=== PATIENT | female | born 1930 | race Caucasian/White ===

== ENCOUNTER 2018-03-18 21:47 | Inpatient (IN) | payer MEDICARE ==
[~2018-03-18] VITALS: Ht 162.6 cm; Wt 54.5 kg
--- OUTSIDE RECORDS SUMMARY | 2018-03-18 21:50 | XMS REPORT | Summary of Care ---
Author Author [facility] [place] Organization [facility] [place] Address Unknown Phone Unavailable Encounter HQ Encntr_naif(FIN) [id number] Date(s): 07/16/15 - 07/16/15 [facility] [place] [address] [place], [place] [address] [place] [phone] Discharge Disposition: Home Attending Physician: Francoise Mccrary MD Vital Signs No data available for this section Problem List No data available for this section Allergies, Adverse Reactions, Alerts Substance Reaction Severity Status NKDA Active Medications No data available for this section Results No data available for this section Immunizations Vaccine Date Refusal Reason tetanus-diphtheria toxoids 05/28/09 Procedures No data available for this section Social History No data available for this section Assessment and Plan No data available for this section
--- OUTSIDE RECORDS SUMMARY | 2018-03-18 21:50 | XMS REPORT | Summary of Care ---
Author Author [facility] Address Unknown Phone Unavailable Encounter Encntr_alias(FIN) [id number] Date(s): 07/29/16 - 08/27/16 Critical access hospital Discharge Disposition: Home or Self Care Attending Physician: Kandy Vernon MD Vital Signs No data available for this section Problem List No data available for this section Allergies, Adverse Reactions, Alerts Substance Reaction Severity Status NKDA Active Medications No data available for this section Results No data available for this section Immunizations Given and Recorded Vaccine Date Status Refusal Reason tetanus-diphtheria toxoids 05/28/09 Given Procedures No data available for this section Social History No data available for this section Assessment and Plan No data available for this section
--- OUTSIDE RECORDS SUMMARY | 2018-03-18 21:50 | XMS REPORT | Continuity of Care Document ---
Author Author Reyes shah Organization Interface Address Unknown Phone Unavailable Problems Problem Status Onset Date Classification Date Reported Comments Source BILATERAL SHOULDERS Active 07/12/2016 [facility] [place] M25.511 - PAIN IN RIGHT SHOULDER M25.512 Active 07/15/2015 [facility] [place] Medications Medication Details Route Status Patient Instructions Ordering Provider Order Date Source Allergies, Adverse Reactions, Alerts Substance Category Reaction Severity Reaction type Status Date Reported Comments Source Immunizations Immunization Date Given Site Status Last Updated Comments Source tetanus-diphtheria toxoids 05/28/2009 Left Deltoid completed Disciullo [facility] [place], OP[facility] [place], [facility] [place] Results Order Name Results Value Reference Range Date Interpretation Comments Source Hand 3 views Bilateral DX Hand 3 views Bilateral DX EXAM: XR BILATERAL HAND 3 VIEWS DATE: 07/08/2016 1:49 PM CDT INDICATION: M25.50 Pain in unspecified joint - M25.50 Pain in unspecified joint COMPARISON: Left hand radiographs 05/28/2009 TECHNIQUE: PA, lateral and oblique radiographs of the bilateral hands. FINDINGS: Generalized diminished bone mineral density. Joint space narrowing and small osteophytes throughout the bilateral DIP and PIP joints, massively changed from 05/28/2009. No erosions identified. No soft tissue swelling identified. IMPRESSION: Moderate osteoarthrosis of the bilateral DIP and PIP joints. 07/08/2016 - - Read by: Cody Sotelo MD Dictated Date/time: 07/08/16 15:58 Electronically Signed by: Cody Sotelo MD 07/08/16 15:59 FINAL REPORT [facility] Foot 3 views bilateral DX Foot 3 views bilateral DX EXAM: XR BILATERAL FOOT 3 VIEWS DATE: 07/08/2016 1:49 PM CDT INDICATION: M25.50 Pain in unspecified joint - M25.50 Pain in unspecified joint COMPARISON: None TECHNIQUE: AP, lateral and oblique radiographs of the feet Laterality: Bilateral FINDINGS: Generalized diminished bone mineral density. Complete joint space loss with articular surface remodeling, sclerosis, and osteophytes of the bilateral first MTP joint. Bilateral joint space narrowing, articular surface remodeling, dorsal osteophytes of the TMT joints. Bilateral plantar calcaneal enthesophytes. IMPRESSION: Bilateral severe arthrosis of the TMT and first MTP joints. 07/08/2016 - - Read by: Cody Sotelo MD Dictated Date/time: 07/08/16 15:56 Electronically Signed by: Cody Sotelo MD 07/08/16 15:58 FINAL REPORT [facility] Shoulder 2+ Views Bilateral DX Shoulder 2+ Views Bilateral DX EXAMINATION: Bilateral shoulders 2+ views HISTORY: M25.511 Pain in right shoulder, M25.512 Pain in left shoulder; bilateral shoulder pain; bilateral glenohumeral osteoarthritis FINDINGS: 3 views of each shoulder are performed without comparison. There are no acute fractures or dislocations. The right glenohumeral joint spaces not well profiled; however, there is severe bilateral glenohumeral osteoarthritis with severe joint space narrowing, subchondral sclerosis, and osteophytosis. There multiple osteocartilaginous loose bodies within the right glenohumeral joint. There is mild bilateral acromioclavicular osteoarthritis. Median sternotomy wires and a prosthetic cardiac valve are noted. There is atherosclerotic calcification of the aorta. Arterial atherosclerotic calcifications are noted. IMPRESSION: 1. Severe bilateral glenohumeral osteoarthritis with multiple osteocartilaginous loose bodies within the right glenohumeral joint. 07/16/2015 - - Read by: Xavier Arce MD Dictated Date/time: 07/16/15 14:04 Electronically Signed by: Xavier Arce MD 07/16/15 14:07 FINAL REPORT [facility] Vital Signs Vital Sign Value Date Comments Source Encounters Location Location Details Encounter Type Encounter Number Reason For Visit Attending Provider ADM Date DC Date Status Source [facility] [place] Outpt Diag Services [id number] Francoise Lora 07/16/2015 07/17/[address] [facility] Outpatient [facility] - [place] Outpt Diag Services [id number] Kandy Vernon 07/08/2016 07/09/2016 SH[facility] [place] [facility] [place] OP Therapy Patients [id number] Kandy Vernon 07/29/2016 08/28/2016 [facility] [place] Procedures Procedure Code Date Perfomer Comments Source
--- OUTSIDE RECORDS SUMMARY | 2018-03-18 21:50 | XMS REPORT | Summary of Care ---
Author Author [facility] Outpatient Imaging [facility] Outpatient [facility] Address Unknown Phone Unavailable Encounter HQ Encntr_alias(FIN) [id number] Date(s): 07/08/16 - 07/08/16 [facility] Outpatient Imaging [facility] [address], [address] [place] [phone] Discharge Disposition: Home or Self Care Attending [...]
[2018-03-18 23:10] LABS: BILIRUBIN,URINE NEGATIVE (NEGATIVE); CLARITY,URINE HAZY (CLEAR); COLOR,URINE YELLOW (YELLOW); KETONES,URINE TRACE (NEGATIVE); LEUKOCYTE ESTERASE ,URINE 1+ (NEGATIVE); NITRITE,URINE NEGATIVE (NEGATIVE); PROTEIN,URINE DIPSTICK NEGATIVE (NEGATIVE); URINE UROBILINOGEN 0.2 mg/dL (0.2 - 1)
[2018-03-18 23:19] LABS: WBC,URINE (MAN) >50 /HPF (0-5)
--- NOTE | 2018-03-18 23:19 | Diagnostic Imaging Report ---
CHEST SINGLE (PORTABLE), 03/18/2018 10:06 PM Technique: CHEST SINGLE (PORTABLE) Comparison: None available. Clinical history: Weakness Findings: See Impression. Severe visualized glenohumeral degenerative change. Impression: 1. Lines/Tubes: None 2. Prominent cardiac silhouette status post valve replacement and sternotomy. Tortuous aorta with calcifications. 3. Central vascular congestion without overt edema or consolidation. No effusion or pneumothorax. Signed by: Dr Malathi Jon MD on 03/18/2018 11:16 PM
[2018-03-18 23:20] LABS: BACTERIA,URINE FEW /HPF; EPITHELIAL CELLS,URINE RARE /LPF
--- NOTE | 2018-03-18 23:21 | Diagnostic Imaging Report ---
History:Right facial droop Comparison studies: Head CT on 09/09/2009 Technique: Axial images were obtained from the skull base to the vertex. Coronal and sagittal images reconstructed from the axial data. Dose modulation, iterative reconstruction, and/or weight based adjustment of the mA/kV was utilized to reduce the radiation dose to as low as reasonably achievable. Intravenous contrast: None Findings: Scalp/skull: No abnormalities. Extra-axial spaces: No masses. No fluid collections. Brain sulci: Moderately prominent. Ventricles: Moderate compensatory dilatation. No hydrocephalus. Parenchyma: Diffuse, confluent, bilateral hypodensities in the supratentorial white matter are small vessel ischemic changes. No masses, hemorrhage, acute or chronic cortical vascular insults. Sellar/suprasellar region: No abnormalities. Craniocervical junction: Patent foramen magnum. No Chiari one malformation. Incidental findings: Atherosclerotic calcifications in the carotid siphons and vertebral arteries. Impression: No acute abnormalities. No changes when compared to the head CT on 09/09/2009 Chronic findings: 1. Moderate generalized volume loss. 2. Diffuse supratentorial white matter small vessel ischemic changes. Signed by: Dr. Kj Bueno M.D. on 03/18/2018 11:17 PM
[2018-03-18 23:39] LABS: BASOPHILS % 0.6 % (0.0-1.0); EOSINOPHILS % 0.6 % (0.0-6.0); HEMATOCRIT 36.9 % (34.2-44.1); HEMOGLOBIN 12.3 g/dL (12.0-16.0); LYMPHOCYTES # (AUTO) 2.3 (1.0-3.2); LYMPHOCYTES % 34.5 % (18.0-39.1); MEAN CORPUSCULAR HEMOGLOBIN 30.7 pg (28-32); MEAN CORPUSCULAR HGB CONC 33.3 g/dL (31-35); MONOCYTES # (AUTO) 0.9 (0.2-0.8); MONOCYTES % 14.4 % (4.4-11.3); NEUTROPHILS # (AUTO) 3.2 (2.1-6.9); NEUTROPHILS % 49.6 % (38.7-80.0); PLATELET COUNT 194 x10e3/uL (140-360); RED BLOOD COUNT 4.01 x10e6/uL (3.6-5.1); RED CELL DISTRIBUTION WIDTH 13.1 % (11.7-14.4)
[2018-03-18 23:39] LABS: ALBUMIN 4.5 g/dL (3.5-5.0); ALBUMIN/GLOBULIN RATIO 1.4 (0.8-2.0); ANION GAP 16.2 mmol/L (8-16); CALCIUM 10.1 mg/dL (8.4-10.2); CREATININE, SERUM 0.93 mg/dL (0.57-1.11); POTASSIUM 4.2 mmol/L (3.5-5.1)
[2018-03-18 23:48] LABS: CREATINE KINASE MB 1.1 ng/mL (0-5.0)
[2018-03-18 23:51] LABS: INR 0.95; PROTHROMBIN TIME 13.6 seconds (11.9-14.5)
[2018-03-18 23:57] LABS: PARTIAL THROMBOPLASTIN TIME 31.2 seconds (23.8-35.5)
[2018-03-19] VITALS (7 sets, daily range): BP systolic 124–174; BP diastolic 57–72
[2018-03-19] MEDS ORDERED: SODIUM CHLORIDE FLUSH 10 ML SYR INJ PRN (00:30)
[2018-03-19] MEDS ORDERED: ONDANSETRON HCL INJ 2MG/ML 2ML 2 MG/ML VIAL IV PRN (00:30)
[2018-03-19] MEDS ORDERED: ASPIRIN 81 MG CHEW TAB PO ONE (00:30)
[2018-03-19] MEDS ORDERED: RIVAROXABAN 10 MG TABLET PO SCH (00:30)
[2018-03-19] MEDS ORDERED: MULTAQ400 MG PO (00:31)
[2018-03-19] MEDS ORDERED: PRAVASTATIN SOD40 MG PO (00:31)
[2018-03-19] MEDS ORDERED: LOSARTAN POTASS25 MG PO (00:31)
[2018-03-19] MEDS ORDERED: VERAPAMIL ER120 MG PO (00:31)
[2018-03-19] MEDS ORDERED: METOPROLOL SUCC25 MG PO (00:31)
[2018-03-19] MEDS ORDERED: RANITIDINE HCL300 MG PO (00:31)
[2018-03-19] MEDS: CEFTRIAXONE SOD 1 GM/NS 50 ML 50 ML IV SCH ×2 (00:41→23:42)
--- OUTSIDE RECORDS SUMMARY | 2018-03-19 00:57 | XMS REPORT ---
Author [facility] Address Unknown Phone Unavailable Care Team Providers [employer] Name Role Phone Liliam COOPER Unavailable Unavailable Problems This patient has no known problems. Allergies, Adverse Reactions, Alerts This patient has no known allergies or adverse reactions. Medications This patient has no known medications. Results Test Description Test Time Test Comments Text Results Atomic Results Result Comments CHEST SINGLE (PORTABLE) 2018-03-18 23:14:00 [place] [address] Patient Name: VENITA SANTIAGO MR #: [id number] : 1930 Age/Sex: 88/F Req #: [id number] Adm Physician: Ordered by: LEONARD COOPER MD Report #: [id number] Location: ER Room/Bed: Procedure: [id number] DX/CHEST SINGLE (PORTABLE) Exam Date: 03/18/18 Exam Time: 7 REPORT STATUS: Signed CHEST SINGLE (PORTABLE), 03/18/2018 10:06 PM Technique: CHEST SINGLE (PORTABLE) Comparison: None available. Clinical history: Weakness Findings: See Impression. Severe visualized glenohumeral degenerative change. Impression: 1. Lines/Tubes: None 2. Prominent cardiac silhouette status post valve replacement and sternotomy. Tortuous aorta with calcifications. 3. Central vascular congestion without overt edema or consolidation. No effusion or pneumothorax. Signed by: Dr Jairo Jon MD on 03/18/2018 11:16 PM Dictated By: JAIRO JON MD 15 Transcribed By: LIZ on 03/18/182315 COPY TO: LEONARD COOPER MD CT BRAIN WO 2018-03-18 23:14:00 [place] [address] Patient Name: VENITA SANTIAGO MR #: [id number] : 1930 Age/Sex: 88/F Req #: [id number] Adm Physician: Ordered by: LEONARD COOPER MD Report #: [id number] Location: ER Room/Bed: Procedure: [id number] CT/CT BRAIN WO Exam Date: 03/18/18 Exam Time: 2251 REPORT STATUS: Signed History:Right facial droop Comparison studies: Head CT on 09/09/2009 Technique: Axial images were obtained from the skull base to the vertex. Coronal and sagittal images reconstructed from the axial data. Dose modulation, iterative reconstruction, and/or weight based adjustment of the mA/kV was utilized to reduce the radiation dose to as low as reasonably achievable. Intravenous contrast: None Findings: Scalp/skull: No abnormalities. Extra-axial spaces: No masses. No fluid collections. Brain sulci: Moderately prominent. Ventricles: Moderate compensatory dilatation. No hydrocephalus. Parenchyma: Diffuse, confluent, bilateral hypodensities in the supratentorial white matter are small vessel ischemic changes. No masses, hemorrhage, acute or chronic cortical vascular insults. Sellar/suprasellar region: No abnormalities. Craniocervical junction: Patent foramen magnum. No Chiari one malformation. Incidental findings: Atherosclerotic calcifications in the carotid siphons and vertebral arteries. Impression: No acute abnormalities. No changes when compared to the head CT on 09/09/2009 Chronic findings: 1. Moderate generalized volume loss. 2. Diffuse supratentorial white matter small vessel ischemic changes. Signed by: Dr. Kj Bueno M.D. on 03/18/2018 11:17 PM Dictated By: KJ BUENO MD, MD [id number] Transcribed By: LIZ on 03/18/18 [id number] COPY TO: LEONARD COOPER MD
--- NOTE | 2018-03-19 01:30 | NUR ---
patient is a new admit that arrived via wheelchair. patient is awake and talking. patient has been helped into the bed. bed is in lowest position and call mccullough is within reach. will continue to monitor patient.
[2018-03-19 06:09] LABS: CREATINE KINASE MB 0.7 ng/mL (0-5.0)
--- NOTE | 2018-03-19 07:14 | NUR ---
patient resting in bed, AAOx3, Denies any pain, no distress noted, call light in reach bed alarm ON.
[2018-03-19] MEDS: ASPIRIN 81 MG ENTERIC COATED PO SCH (08:30)
[2018-03-19] MEDS: PRAVASTATIN 20 MG TAB PO SCH (08:31)
[2018-03-19] MEDS: DRONEDARONE 400 MG TAB PO SCH (08:54)
[2018-03-19] MEDS ORDERED: LOSARTAN POTASSIUM 25 MG TAB PO SCH (09:00)
[2018-03-19] MEDS ORDERED: VERAPAMIL HCL 180 MG TBER PO SCH (09:00)
[2018-03-19] MEDS ORDERED: METOPROLOL SUCCINATE 25 MG TAB XL PO SCH (09:00)
--- NOTE | 2018-03-19 10:44 | Diagnostic Imaging Report ---
EXAMINATION: MRI of the brain without contrast. HISTORY: Right facial weakness COMPARISON: Head CT on 03/18/2018 TECHNIQUE: Sagittal T2; axial DWI, T2, FLAIR, T1-IR, T2 gradient echo; coronal FLAIR. IMAGE QUALITY: Adequate. FINDINGS: Parenchyma: 1. Focal area of FLAIR hyperintensity in mild restricted diffusion in the left para median roberto is consistent with acute/subacute ischemic infarct. No associated hemorrhagic component or mass effect. 2. Scattered and moderate confluent periventricular, nam radiata and centrum semiovale white matter T2 and FLAIR hyperintense foci, most likely nonspecific chronic microvascular ischemic changes 3. No mass, hemorrhage, or chronic infarcts. Skull: Unremarkable. Vessels: Expected flow voids present in the major arteries and dural sinuses. Extra-axial spaces: No abnormal signal intensity or mass effect. Brain volume: Within normal limits for age. Ventricles: No hydrocephalus or displacement. Foramen magnum: Unremarkable. Sella: Unremarkable. Paranasal / mastoid sinuses: No significant inflammatory disease. IMPRESSION: 1. Acute to subacute left paramedian roberto ischemic infarct without hemorrhagic conversion or mass effect. 2. Moderate chronic microvascular ischemic changes. Signed by: Dr. Una Amin M.D. on 03/19/2018 10:41 AM
[2018-03-19] MEDS ORDERED: HYDRALAZINE HCL 20 MG/ML VIAL IV PRN (10:45)
[2018-03-19 11:08] LABS: CHOL/HDL RATIO 2.3 (3.0-3.6)
[2018-03-19] MEDS ORDERED: FUROSEMIDE INJ 10 MG/ML 4 ML VIAL IV ONE (13:30)
--- NOTE | 2018-03-19 14:08 | Consultation ---
DATE OF CONSULTATION: March 19, 2018 NEUROLOGY CONSULT NOTE HISTORY OF PRESENT ILLNESS: Ms. Zabala is an 88-year-old right hand dominant woman with past medical history significant for hypertension, hyperlipidemia, atrial fibrillation, and cardiac valve replacement, admitted to [facility] on March 19, 2018 with a stroke. At approximately 0900 on March 18, 2018, the patient experienced the sudden onset of slurred speech and right facial weakness. Ms. Zabala reports a possible visual disturbance, though she cannot further describe this disturbance. In addition, the patient reports generalized weakness affecting the arms and legs. Ms. Zabala does not report numbness, worsening gait or balance, dizziness, or confusion. Following the onset of the above symptoms, the patient did not nothing. However, on the evening of March 18, 2018, Ms. Zabala was brought to the emergency center at [facility] by her daughter for further evaluation of her symptoms. Upon arrival in the emergency center, the patient was afebrile with a blood pressure of 184/73 mmHg and a pulse of 74 beats per minute. Her neurological examination was significant for mild dysarthria, mild right-sided facial weakness as well as generalized weakness. A CT of the brain without contrast was performed while Ms. Zabala was in the emergency center. This study did not show evidence of recent large territorial ischemia or hemorrhage. Ms. Zabala was admitted to [facility] under observation status for further evaluation and treatment of the above described symptoms. Ms. Zabala does not report experiencing similar symptoms previously. The patient takes Xarelto 10 mg by mouth daily as well as aspirin 81 mg by mouth daily as prescribed by her die developer. However, Ms. Zabala reports running out of her Xarelto approximately 3 to 4 days prior to admission. REVIEW OF SYSTEMS: Urinary frequency, possible visual disturbance, dysarthria, right-sided facial weakness, generalized weakness, impairment of balance and gait (chronic), right arm pain. Otherwise, the 12-point review of systems is negative. PAST MEDICAL HISTORY: Hypertension, hyperlipidemia, atrial fibrillation. PAST SURGICAL HISTORY: Cardiac valve replacement, total hysterectomy, left carotid stent, bilateral cataract removal. PAST HOSPITALIZATIONS: Surgeries/procedures as listed, childbirth x5. FAMILY MEDICAL HISTORY: The patient's paternal and maternal grandparents are . Their medical histories are unknown. Ms. Zabala's father is . The patient was estranged from her father for most of her life and does not know his medical history. The patient's mother is from emphysema. Ms. Zabala had 2 siblings, a brother and a sister, both of whom are . The brother is from stomach cancer. The sister is from a pulmonary embolus. Ms. Zabala has 5 children, 3 sons and 2 daughters, all of whom are living. Two sons have hypertension. The third son has chronic back pain. One daughter has rheumatoid arthritis. The second daughter is healthy. SOCIAL HISTORY: The patient is . She lives alone. Ms. Zabala is retired. The patient does not report current or prior tobacco, alcohol, or recreational drug use. HOME MEDICATIONS: Multaq 400 mg by mouth daily, losartan 25 mg by mouth daily, metoprolol 25 mg by mouth daily, pravastatin 40 mg by mouth daily, ranitidine 300 mg by mouth at bedtime daily, verapamil 90 mg by mouth daily, aspirin 81 mg by mouth daily, Xarelto 10 mg by mouth daily. ALLERGIES: NO KNOWN DRUG ALLERGIES. NO KNOWN FOOD ALLERGIES. NO KNOWN ALLERGIES TO LATEX. NO KNOWN ALLERGIES TO IODINE OR OTHER CONTRAST MATERIALS. PHYSICAL EXAMINATION VITAL SIGNS: Height 62 inches, weight 112 pounds, BMI 20.5 kg per meter squared. Blood pressure 174/72 mmHg, Pulse 76 beats per minute, respiratory rate 19 breaths per minute, oxygen saturation 97% on room air. GENERAL: The patient is awake and alert. Does not appear distressed. Mildly confused. HEENT: Normocephalic, atraumatic. Pupils are surgical. Moist mucous membranes. NECK: Supple. No appreciable thyromegaly. No appreciable carotid bruits. CARDIOVASCULAR: S1, S2, irregular rhythm, regular rate. No murmurs, rubs, or gallops. RESPIRATORY: Clear to auscultation bilaterally. No wheezes, rhonchi, or rales. EXTREMITIES: The skin is warm and dry. No clubbing, cyanosis, or edema. The posterior tibial and dorsalis pedis pulses are 1+ and symmetric. SKIN: Abrasions over the bilateral forelegs. NEUROLOGIC Memory/Attention: he patient is awake and alert, oriented to person, place, not time, and moderately situation. Cranial Nerves: Cranial nerve I- Not tested. Cranial nerve II, III, IV, and - Pupils are surgical. Extraocular movements intact. No nystagmus. Cranial nerve V - Sensation to light touch and pinprick is intact in the bilateral V1 through V3 distributions. Strength of the temporalis and masseter muscles is within normal limits. Cranial nerve VII - The face is asymmetric on the left as are all facial movements. Mild right central facial weakness is present. Cranial nerve VIII - Hearing is diminished to finger rub bilaterally. Cranial nerve IX and X - The soft palate elevates equally and symmetrically. Cranial nerve XI - Normal strength of the bilateral sternocleidomastoid and trapezius muscles. Cranial nerve XII - The tongue protrudes midline and moves symmetrically from side to side. Strength: Bulk is mildly diminished throughout. Strength is 5/5 in the left deltoid, bicep, tricep, wrist flexors and extensors, finger flexors and extensors, intrinsic hand muscles, hip flexors, knee flexors and extensors, ankle dorsiflexion and plantar flexion, and intrinsic foot muscles. In the right arm, flexors are 5/5 and extensors are 4/5. In the right leg, flexors are 4/5 and extensors are 4+/5. Tone is normal in all 4 extremities DTRs: Deep tendon reflexes are 2+ and symmetric at the triceps, biceps, brachioradialis, and patellas. Deep tendon reflexes are absent and symmetric at the Achilles. Plantar responses are flexor bilaterally. Sensation: Sensation is intact to light touch in both arms and both legs. Sensation to pinprick is diminished over the left hemibody. Cerebellar: Cqsolv-xlac-jvbtty and heel-bhatti movements are intact without dysmetria or other impairment. Gait: Deferred. Speech: Spontaneous speech is mildly dysarthric without appreciable aphasia. Repetition is not intact. Involuntary Movements: None. Pronator Drift: Positive in the right arm and right leg. LABORATORY DATA: A comprehensive metabolic panel is significant for a mildly elevated anion gap of 16.2 and an estimated GFR of 57. Cardiac enzymes are negative x2. The CBC with differential and platelets is within normal limits. PT 13.6, INR 0.95, PTT 31.2. A urinalysis reveals hazy urine with trace ketones, 1+ leukocyte esterase, and greater than 50 white blood cells. DIAGNOSTIC STUDIES: Electrocardiogram, March 18, 2018: Junctional rhythm at 77 beats per minute. Left ventricular hypertrophy. Nonspecific abnormality of the ST segment and T waves. Chest x-ray March 18, 2018: 1. Line/tubes: None. 2. Prominent cardiac silhouette, status post valve replacement and sternotomy. Tortuous aorta with calcifications. 3. Central vascular congestion without overt edema or consolidation. No effusion or pneumothorax. CT of the brain without contrast of March 18, 2018: On my review, there is no evidence of recent large territorial ischemia, hemorrhage, mass, or mass effect. There is moderate diffuse cerebral atrophy with compensatory dilatation of the ventricles. There are findings compatible with ouzpsfet-jz-nizwdy chronic small vessel ischemic disease. MRI of the brain without contrast, March 19, 2018: On my review, there is acute ischemia in the left paramedian roberto. There is diffuse cerebral atrophy with compensatory dilatation of the ventricles. There are scattered confluent T2/FLAIR hyperintense foci in the supratentorial and infratentorial white matter compatible with [id number]-[id number]-aqohsq chronic small vessel ischemic disease. ASSESSMENT AND PLAN: Ms. Zabala is an 88-year-old woman with multiple vascular risk factors, off Xarelto for 3 to 4 days, admitted to [facility] on March 19, 2018 with an acute left paramedian pontine stroke. A thorough neurological examination was performed with findings detailed above. The patient's laboratory data and other diagnostic studies have been reviewed and are documented above. RECOMMENDATIONS 1. A lipid panel and hemoglobin A1c will be ordered. 2. An echocardiogram has been ordered and is pending. Follow up the results. 3. Bilateral carotid artery ultrasound with Doppler will be ordered. 4. Resume treatment with Xarelto 10 mg by mouth daily. The importance of continue treatment with this medication was discussed in detail with Ms. Zabala. 5. Allow permissive hypertension for 24 or 48 hours post stroke. At present, the patient's goal blood pressure is 170 to 200 mmHg systolic and 70 to 100 mmHg diastolic. Patient's home blood pressure medications will be held. An order for hydralazine p.r.n. has been placed. 6. The patient's goal total cholesterol is less than 200 with a LDL of less than 70. Follow up the results of the lip panel. In the interim, the patient's home medication of pravastatin 40 mg by mouth at bedtime daily will be continued. 7. The patient's goal hemoglobin A1c is less than 7.0. Follow up the results of the hemoglobin A1c. Tight glycemic control is recommended while the patient is in the hospital. 8. Speech and physical therapy consultations have been ordered. 9. GI prophylaxis with Pepcid 40 mg by mouth at bedtime daily. DVT prophylaxis with Xarelto 10 mg by mouth daily. 10. Atrial fibrillation. Continue treatment with Xarelto 10 mg by mouth daily. Multaq 400 mg by mouth daily will be continued. 11. Urinary tract infection. Continue treatment with intravenous antibiotics. This is the probable source of the patient's mild confusion. Thank for this consultation. I will continue to follow the patient while she remains in the hospital. TIME SPENT: 70 minutes. Job#: [id number] VALERIEU [id number]
[2018-03-19] MEDS: OLMESARTAN 20 MG TAB PO SCH (15:15)
[2018-03-19 16:04] LABS: CREATINE KINASE 36 IU/L (29-168)
[2018-03-19] MEDS ORDERED: APIXAB 2.5 MG TABLET PO SCH (17:00)
[2018-03-19] MEDS: RIVAROXABAN 10 MG TABLET PO SCH (17:10)
--- NOTE | 2018-03-19 18:53 | NUR ---
patient resting in bed, Alert with no distress, tolerated with dinner, bed alarm on , call light in reach
[2018-03-19] MEDS: FAMOTIDINE 20 MG TAB PO SCH (21:31)
[2018-03-19] MEDS ORDERED: SODIUM CHLORIDE 0.9% 250ML 250 ML ONE (23:32)
[2018-03-20] VITALS (8 sets, daily range): BP systolic 119–170; BP diastolic 58–74
--- NOTE | 2018-03-20 04:25 | Consultation ---
DATE OF CONSULTATION: March 19, 2018 Patient admitted on the 19 [address] Joe and seen in consultation on the 19 of March. HISTORY: This 88-year-old patient was kindly referred for cardiovascular evaluation. The patient was admitted with left pontine stroke as seen on the MRI of the brain and the patient also was seen on neurological evaluation by Dr. Monet. The patient stated that she had a sudden onset of feeling very weak and was noted to have right facial weakness and also weakness on the right arm and the right leg as well as some speech impairment, and was brought to the emergency room by her daughter. However, the patient states she has very little recollection of the events. Recently, the patient was seen on a routine office visit and found to be in atrial fibrillation. The patient was unaware of her arrhythmia and the timing of the onset is not clear. However, the patient was started on Multaq and Xarelto, and on followup found to be back in sinus rhythm. At no time, the patient had any kind of neurological event and even when the patient converted back to sinus rhythm, she was not aware of the rhythm changes. PAST HISTORY: Reveals that she had aortic valve replacement with bioprosthesis and had been on antiplatelet medication. She also has history of coronary artery disease and coronary stenting. She has history of hypertension, COPD, hyperlipidemia. She had previous hysterectomy and cataract surgery. ALLERGIES: NO KNOWN. SOCIAL HISTORY: Negative. FAMILY HISTORY: Noncontributory. REVIEW OF SYSTEMS: The remainder of systems reviewed, revealed patient denies any headache or sore throat. The patient is oriented on time and location. She denies any chest pain or shortness of breath, orthopnea or paroxysmal nocturnal dyspnea. The patient denies any abdominal pain or leg swelling. PHYSICAL EXAMINATION: VITAL SIGNS: Reveals blood pressure 135/60, temperature is , oxygen saturation is 95% on room air. NECK: Carotid pulses are present without any vascular bruits. CHEST: Reveals hyperresonance and decreased breath sounds, however, there are no wheezes and no rales. CARDIOVASCULAR SYSTEM: Reveals a normal apical impulse. The rhythm is regular. First and second are normal. The opening and closing sounds of the aortic valve are normal. ABDOMEN: Soft. There is no tenderness or organomegaly. EXTREMITIES: Posterior tibial pulses are 2+. Dorsalis pedis pulses could not be palpated. Both feet are warm. There are some varicosities, but no edema. Homans' sign is negative. NEUROLOGIC: Shows some weakness involving the right arm and the right leg and also there is right-sided facial paralysis noted on inspection and examination. However, the patient's speech impairment is back to normal again and the patient denies any difficulty with swallowing. IMPRESSION: 1. Coronary atherosclerotic and hypertensive cardiovascular disease with history of coronary stenting. 2. History of aortic stenosis, postoperative aortic valve replacement. 3. Left pontine cerebrovascular accident. 4. Paroxysmal atrial fibrillation with assuming history of chronic atrial fibrillation for some extended time prior to medical conversion. 5. Urinary tract infection. The patient's echocardiogram showed normal sinus rhythm with first-degree atrioventricular block. There are no ectopies. I will review the patient's carotid ultrasound. Also the patient's antihypertensive medication with losartan has been on recall and I will like to start the patient on olmesartan 20 mg daily. Also, I agreed to continue patient's antiarrhythmic medication and anticoagulation. Thank you very much for letting me see this very nice patient. Job#: [id number]
[2018-03-20 05:17] LABS: BASOPHILS % 0.6 % (0.0-1.0); EOSINOPHILS # (AUTO) 0.1 (0.0-0.4); EOSINOPHILS % 1.3 % (0.0-6.0); HEMATOCRIT 32.7 % (34.2-44.1); HEMOGLOBIN 11.4 g/dL (12.0-16.0); LYMPHOCYTES # (AUTO) 1.9 (1.0-3.2); LYMPHOCYTES % 35.7 % (18.0-39.1); MEAN CORPUSCULAR HGB CONC 34.9 g/dL (31-35); MEAN CORPUSCULAR VOLUME 91.9 fL (81-99); MONOCYTES # (AUTO) 0.7 (0.2-0.8); MONOCYTES % 12.7 % (4.4-11.3); NEUTROPHILS # (AUTO) 2.6 (2.1-6.9); NEUTROPHILS % 49.3 % (38.7-80.0); PLATELET COUNT 191 x10e3/uL (140-360); RED BLOOD COUNT 3.56 x10e6/uL (3.6-5.1); RED CELL DISTRIBUTION WIDTH 12.9 % (11.7-14.4)
[2018-03-20 05:39] LABS: ALANINE AMINOTRANSFERASE 10 IU/L (0-55); ALBUMIN 3.6 g/dL (3.5-5.0); ALBUMIN/GLOBULIN RATIO 1.4 (0.8-2.0); ALKALINE PHOSPHATASE 85 IU/L (40-150); ANION GAP 12.8 mmol/L (8-16); BLOOD UREA NITROGEN 21 mg/dL (7-26); BUN/CREATININE RATIO 26 (6-25); CALCIUM 9.7 mg/dL (8.4-10.2); CARBON DIOXIDE 26 mmol/L (22-29); CHLORIDE 105 mmol/L (98-107); EST GLOMERULAR FILTRATION RATE > 60 ML/MIN (60-); GLUCOSE 99 mg/dL (74-118); POTASSIUM 3.8 mmol/L (3.5-5.1); SODIUM 140 mmol/L (136-145)
--- NOTE | 2018-03-20 07:02 | NUR ---
report given to day nurse. patient is resting comfortably in bed. bed is in lowest position and call mccullough is within reach.
--- NOTE | 2018-03-20 08:16 | History and Physical ---
Patient has a history of atrial fibrillation and decided not to take her Xarelto any more due to the fact that she cannot afford it. She does see Dr. Regan as her tar distributor operator. Patient was seen and evaluated at bedside on the medical floor, currently doing well with no other issues. Neurology and cardiology were consulted. REVIEW OF SYSTEMS: Pertinent positives: Slurred speech. Facial drooping. Pertinent negatives: Denies any chest pain, palpitation, nausea, vomiting, diarrhea, dysuria, hematuria, frequency, urgency, lightheadedness, dizziness, abdominal pain, headache, shortness of breath, cough, congestion, fever, or any other complaints. The rest of 14-point of review of systems have been reviewed with the patient and are negative. ALLERGIES: NO KNOWN DRUG ALLERGIES. HOME MEDICATIONS 1. Multaq 400 mg p.o. daily. 2. Losartan 25 mg daily. 3. Metoprolol 25 mg daily. 4. Pravastatin 40 mg daily. 5. Ranitidine 300 mg at bedtime. 6. Verapamil 120 mg daily. PAST MEDICAL HISTORY: Has a history of AFib, on anticoagulation, which she stopped; history of CAD; history of acid reflux; history of hypertension; hyperlipidemia. SURGICAL HISTORY: None. FAMILY HISTORY: Hypertension and diabetes. SOCIAL HISTORY: No drugs. No alcohol. Does smoke. She is retired, has children. PHYSICAL EXAMINATION VITAL SIGNS: Temperature is 98.4, pulse 82, respiratory rate 19, blood pressure 135/60, pulse ox 95% on room air. GENERAL: Not in acute distress, alert and oriented x 3, cooperative on examination. HEENT: Head is normocephalic and atraumatic. Eyes: Pupils are equal, round, reactive to light bilaterally. Extraocular movements are intact bilaterally. Throat with no evidence of any erythema or exudates in the posterior pharynx. Has poor dentition. NECK: Supple. Good range of motion. PULMONARY: Clear to auscultation bilaterally. No wheezing. No rales. No rhonchi. No crackles appreciated. CARDIOVASCULAR: Positive S1, S2. No murmurs, rubs, or gallops appreciated. ABDOMEN: Soft, nondistended, and nontender to palpation. Bowel sounds are present. MUSCULOSKELETAL: Strength is 5/5 throughout. No evidence of any musculoskeletal deficits on examination. No weakness appreciated. NEUROLOGICAL: Cranial nerves II through XII are grossly intact. No evidence of any neurological deficits on exam. Patient had some left facial dropping on examination as well as slurred speech. SKIN: Intact. Warm to touch. Good cap refill. PSYCHIATRIC: Normal affect and mood. EXTREMITIES: No edema. Good range of motion throughout. LAB FINDINGS: Show white count of 6.2, hemoglobin 12.3, hematocrit is 36.9, platelets of 194. Coagulation; PT 13.6, INR 0.95, PTT 31. Chemistries; sodium 139, potassium 4.3, chloride 104, bicarb 23, anion gap of 16, BUN is 15, creatinine is 0.93, glucose is 103, hemoglobin A1c is 5.1, calcium is 10, total bilirubin is 0.5, AST 20, ALT 15. CK 54, troponins are negative. Albumin is 4.5. LDL 69. Urinalysis concerning for UTI. MICROBIOLOGY: Done. IMAGING STUDIES: Chest x-ray shows some central vascular congestion, no other acute complaint. CT brain showed no acute abnormality. MRI of the brain showed acute inferior lobe paramedian roberto ischemic infarct with some hemorrhagic and white matter mass effect as well as chronic microvascular ischemic changes. Carotid Doppler is pending. IMPRESSION 1. Acute cerebrovascular accident seen on magnetic resonance imaging of the brain. 2. Probable urinary tract infection. 3. Atrial fibrillation. 4. Hyperlipidemia. 5. Hypertension. PLAN: At this time, neurology has been consulted. Full neurological workup for CVA has been ordered. A 2D echo and carotid ultrasound ordered. PT, OT, speech therapy as well. May need longterm facility as the patient lives alone and we need to evaluate her for ambulation status. She is on IV antibiotics for probable UTI. Our goal for her acute CVA and high blood pressure is to maintain blood pressure between 180 and 200 according to the neurologist. We are going to continue with pravastatin as well as aspirin. In relation to her AFib, a 2D echo has been ordered. Her tar distributor operator has been consulted. Xarelto has been restarted. Patient has been very noncompliant with Xarelto at home. We are going to resume her antihypertensive medications. She is on a heart-healthy diet. It seems like she is swallowing okay at bedside according to the nursing staff. She is still on amiodarone p.o. We will continue same plan of care. DISCHARGE PLANNING: Patient will likely be here for another day. We will determine her overall general status and if possible, she may need to go to longterm facility. Job#: [id number] LPA
[2018-03-20] MEDS: OLMESARTAN 20 MG TAB PO SCH (09:00)
[2018-03-20] MEDS: DRONEDARONE 400 MG TAB PO SCH (09:30)
[2018-03-20] MEDS: PRAVASTATIN 20 MG TAB PO SCH (09:30)
[2018-03-20] MEDS: ASPIRIN 81 MG ENTERIC COATED PO SCH (09:30)
--- NOTE | 2018-03-20 11:43 | Progress Note ---
DATE: March 20, 2018 MEDICINE PROGRESS NOTE SUBJECTIVE: The patient is doing much better today with no other issues. She is tolerating the diet well. OBJECTIVE VITAL SIGNS: Temperature is 97, pulse 66, respiratory rate 14, blood pressure 170/74, which is appropriate according to neurology's recommendation. LABS: White count is 5.2, hemoglobin 11.4, hematocrit 33, platelets 191. Coagulation: PT 13.6, INR 0.95, PTT 31. Chemistries: Sodium 140, potassium 3.8, chloride 105, bicarb 22, anion gap 12, BUN 21, creatinine 0.8. LFTs are normal. MICROBIOLOGY: Urine cultures are pending. IMAGING STUDIES: Carotid ultrasound was found to be negative. Baseline preliminary echo was found to have EF 40% to 45% seen in the chart. PHYSICAL EXAMINATION GENERAL: Not in acute distress, alert and oriented x3, cooperative on examination. HEENT: Head is normocephalic and atraumatic. Eyes: Pupils are equal and reactive to light bilaterally. Extraocular movements are intact bilaterally. NECK: Supple. Good range of motion. Throat with no evidence of any erythema or exudates in the posterior pharynx. Has poor dentition. PULMONARY: Clear to auscultation bilaterally. No wheezing. No rales. No rhonchi. No crackles appreciated. CARDIOVASCULAR: Positive S1, S2. No murmurs, rubs or gallops appreciated. ABDOMEN: Soft, nondistended, and nontender to palpation. Bowel sounds are present. MUSCULOSKELETAL: Strength is 5/5 throughout. No evidence of any musculoskeletal deficits on examination. No weakness appreciated. NEUROLOGICAL: Cranial nerves II through XII are grossly intact. No evidence of any neurological deficits on exam. Does have facial dropping on examination. EXTREMITIES: No edema. Good range of motion throughout. PSYCHIATRIC: At baseline. IMPRESSION 1. Acute cerebrovascular accident on MRI imaging study found. 2. Probable urinary tract infection. 3. Atrial fibrillation. 4. Hyperlipidemia. 5. Hypertension. PLAN: At this time, the patient has not worked with PT and OT, which has been ordered. So PT, OT and speech therapy have been consulted. We are going to walk and see if she really needs [facility] versus inpatient rehab. I have discussed this with case management. We will continue with IV antibiotics for probable UTI. She is already on rate-control medications and oral Xarelto. She is also on a statin and aspirin. Blood pressure is well controlled and manageable. Neurologist would prefer systolic blood pressure in the 170s range anyway. We will continue with the same plan of care. Job#: [id number]
--- NOTE | 2018-03-20 14:57 | NUR ---
CASE MANAGEMENT INITIAL ASSESSMENT Broadcast Checker to bedside to discuss plan of care with patient/family. CM/SW role and care transitions discussed. Anticipated discharge plan discussed along with duration of care. CM/SW discussed patients right to make decisions in care. CM/SW work hours given. Patient lives: ALONE IN 2 STORY HOME. PT DOES NOT USE HER UPSTAIRS. Admit/Transfer: ER FROM HOME. Hospital/ER visits since last admit: NONE POA/Emergency contact: DAUGHTER/ ARMAND @ [phone]. DAUGHTER IS AND RN AND LIVES IN [place]. WILL RETURN HOME ON 03/28/2018. Current/Previous Home Health: NONE PCP/Follow-up Care: DR. RAMOS / TITLE ATTORNEY Current/Previous DME: [facility] Medications (referring to index hospitalization or the first time you were in the hospital) a. Were changes made in your medications when you were in the hospital on [date of index hospitalization]? Yes No Not sure Explain: PT WAS GIVEN SAMPLES OF XARELTO ON HER LAST APPOINTMENT W [facility]. STATES SHE DID NOT CONTINUE TAKING THE MED, BECAUSE THE PRESCRIPTION WAS > $300AND SHE WAS NOT ABLE TO AFFORD THE MEDICINE AND DID NOT ASK FAMILY TO HELP. Note: If no or not sure, please skip to question d b. Did you understand the changes? Yes Explain: c. Were you able to obtain your new medications right away? No Explain: SEE ABOVE NOTE d. Were you able to take your medications like the doctor wanted you to? Yes No Explain: YES, UNTIL THE SAMPLES RAN OUT. e. Did the hospital give you an accurate, easy to understand list of medications when you left? Yes Explain: PT WAS NOT AWARE OF COST AFTER SAMPLES WERE COMPLETED AND DID NOT CALL HER TITLE ATTORNEY TO ASK FOR MORE SAMPLES. Scale of 1-10 how comfortable does patient feel with disease management in outpatient setting: Other Services: FRIENDS AND HER SON THAT LIVES IN [place] TAKE HER TO THE GROCERY STORE AND DOCTOR APPOINTMENTS. Employment Status: RETIRED Areas of Concerns: MED COMPLIANCE, MEMORY, LIVING ARRANGEMENTS Referral Needs: INPT REHAB VS SNF Education Needs: IMPORTANCE OF NOTIFYING FAMILY OR MD FOR ASSISTANCE. IMM/TUBBS given and signed (if applicable): DONE Goal for discharge: PT WOULD LIKE TO BE RECEIVE REHAB AND THEN RETURN HOME ALONE. DISCUSSED ALTERNATIVES W THE PT AND HER DTR. CM/SW left business card at the bedside with contact information. Name and number was also written on the patients whiteboard. Patient verbalized understanding of discussion. CM will follow-up with ongoing discharge and transition of care needs.
--- NOTE | 2018-03-20 17:00 | NUR ---
SPOKE W DR. CHRISTENSEN REGARDING INPATIENT REHAB. ORDER GIVEN FOR INPATIENT REHAB. LIST WAS PROVIDED TO THE DTR. WILL F/U IN THE AM ON CHOICE.
[2018-03-20] MEDS: METOPROLOL SUCCINATE 25 MG TAB XL PO SCH (17:10)
[2018-03-20] MEDS: RIVAROXABAN 10 MG TABLET PO SCH (17:10)
[2018-03-20] MEDS: VERAPAMIL HCL 180 MG TBER PO SCH (17:10)
--- NOTE | 2018-03-20 19:00 | NUR ---
rounded with caustic cresylate shift superintendent nurse, patient aware of change. Patient in no distress, call mccullough within reach and bed in lowest position.
[2018-03-20] MEDS: FAMOTIDINE 20 MG TAB PO SCH (20:31)
[2018-03-20] MEDS ORDERED: SODIUM CHLORIDE 0.9% 250ML 250 ML ONE (21:26)
[2018-03-20] MEDS: CEFTRIAXONE SOD 1 GM/NS 50 ML 50 ML IV SCH (23:40)
[2018-03-21] VITALS (7 sets, daily range): BP systolic 92–179; BP diastolic 52–73
--- NOTE | 2018-03-21 07:00 | NUR ---
SHIFT REPORT RECEIVED FROM NIGHT RN WHILE ROUNDING. PT DENIES NEEDS AT THIS TIME.
[2018-03-21] MEDS: OLMESARTAN 20 MG TAB PO SCH (08:41)
[2018-03-21] MEDS: VERAPAMIL HCL 180 MG TBER PO SCH (08:41)
[2018-03-21] MEDS: ASPIRIN 81 MG ENTERIC COATED PO SCH (08:41)
[2018-03-21] MEDS: METOPROLOL SUCCINATE 25 MG TAB XL PO SCH (08:42)
[2018-03-21] MEDS: PRAVASTATIN 20 MG TAB PO SCH (08:42)
[2018-03-21] MEDS: DRONEDARONE 400 MG TAB PO SCH (08:42)
--- NOTE | 2018-03-21 10:52 | NUR ---
ST NOTE: Attempted to see pt for speech language therapy and BSE, pt with PT. Will attempt at later time. Handoff to KOBY Jacob
--- NOTE | 2018-03-21 11:30 | NUR ---
RAPID RESPONSE CALLED WHEN A CHANGE IN PT'S MENTAL STATUS.
[2018-03-21] MEDS ORDERED: SODIUM CHLORIDE 0.9% 1000ML 1,000 ML ONE (11:54)
[2018-03-21] MEDS ORDERED: ATROPINE SULFATE 0.1 MG/ML 10ML SYR ONE (11:57)
--- NOTE | 2018-03-21 13:12 | Diagnostic Imaging Report ---
Examination: Cervical and Intracranial CT Angiogram with Contrast History: Right leg weakness. History of recent pontine stroke. Comparison studies: Head CT performed March 18, 2018 and brain MRI performed March 19, 2018. Technique: Axial images were obtained from the thoracic inlet. Coronal and sagittal images reconstructed from the axial data. Intravenous contrast: 100 mL of Isovue-370. Degree of stenosis at the carotid bulbs, if present, will be calculated using NASCET criteria where the smallest diameter at the location of stenosis is compared to the diameter of the more distal non-diseased vessel lumen. Computer generated maximum intensity projection and 3D images of the cervical and intracranial anterior and posterior circulations were performed on a separate workstation. Dose modulation, iterative reconstruction, and/or weight based adjustment of the mA/kV was utilized to reduce the radiation dose to as low as reasonably achievable. Findings: CTA neck: Aortic arch and major vessels: Patent. Atherosclerotic calcification of the aortic arch. Common carotid arteries: Patent Cervical carotid bifurcations: Right: Nonstenotic calcific plaque posteromedially. Left :Nonstenotic mixed plaque. Internal carotid arteries: Right: Coarse dystrophic calcification along the lateral wall that results in mild (30%) stenosis for a length of 3.5 mm. Left: Mixed plaque at the proximal cervical segment. This does not result in stenosis.. Vertebral arteries: Patent. CTA head: Internal carotid arteries: Nonstenotic calcific plaque in the cavernous, ophthalmic, clinoid and communicating segments. Anterior cerebral arteries: Patent A1 and A2 segments. Middle cerebral arteries: Patent M1 and M2 segments. Posterior cerebral arteries: Patent. Vertebro-basilar system: Patent. Anatomical variants: Anterior communicating artery :Not visualized. Posterior communicating arteries: Not visualized on the right. Patent on the left. Vertebral arteries: Codominant. IMPRESSION: 1. No intracranial or cervical high-grade stenosis or occlusion or vascular malformation. 2. Mild stenosis (30%) of the proximal right cervical internal carotid artery, as detailed above. 3. Nonstenotic calcific and mixed plaque involving the aortic arch, bilateral carotid bifurcations and cavernous and supraclinoid internal carotid arteries. Signed by: Dr. Juju Church M.D. on 03/21/2018 1:09 PM
--- NOTE | 2018-03-21 13:34 | Progress Note ---
DATE: March 21, 2018 MEDICINE PROGRESS NOTE SUBJECTIVE: Patient's daughter was stating that her right hand of the patient looks very cold and dusky, in which I evaluated it. It does feel very cold. The patient denies any pain at this time. I also had the nurse evaluate the hand as well. I did order a stat arterial Doppler and will also order a CT angiogram of the arm as well. I will also consult with vascular surgery to come and evaluate that arm. She is currently otherwise doing well. OBJECTIVE VITAL SIGNS: Temperature is 97.5, pulse 71, respiratory rate 12, blood pressure 179/73. Pulse ox is 96%. This is the blood pressure that the neurologist would recommend. LABS: White count is 5.3, hemoglobin 11.4, hematocrit 33, platelets 191. Chemistries: Sodium 140, potassium 3.8, chloride 105, bicarb 26, anion gap 12, BUN 21, creatinine 0.8. PHYSICAL EXAMINATION GENERAL: Not in acute distress. Alert and oriented x3. Cooperative on examination. HEENT: Head is normocephalic and atraumatic. Eyes: Pupils are equal and reactive to light bilaterally. Extraocular movements are intact bilaterally. NECK: Supple. Good range of motion. Throat with no evidence of any erythema or exudates in the posterior pharynx. Has poor dentition. PULMONARY: Clear to auscultation bilaterally. No wheezing. No rales. No rhonchi. No crackles appreciated. CARDIOVASCULAR: Positive S1, S2. No murmurs, rubs or gallops appreciated. ABDOMEN: Soft, nondistended, and nontender to palpation. Bowel sounds are present. MUSCULOSKELETAL: Strength is 5/5 throughout. No evidence of any musculoskeletal deficits on examination. NEUROLOGICAL: Her right hand seems to be very cold. It is nontender to palpation. Up to about the forearm is where it is cold to. She also has a facial droop as well on the left side, which she has had since admission. PSYCHIATRIC: Normal affect and mood. EXTREMITIES: No edema. Good range of motion throughout. IMPRESSION 1. Acute cerebrovascular accident seen on MRI study. 2. Urinary tract infection. 3. Atrial fibrillation, rate controlled. 4. Hyperlipidemia. 5. Hypertension. 6. Right hand cold sensation. PLAN: At this time, she is working with PT and OT. Speech therapy evaluated the patient, and now she is on a regular diet. Our plan is to discharge her to an inpatient rehab facility, which I have discussed with the daughter and the patient at bedside. She is getting IV antibiotics for her UTI. In relation to her AFib, her rate is controlled, and she is on Xarelto. Dr. Regan of cardiology is following. She is on a statin. Her blood pressure is appropriate based on neurology's recommendations. In relation to her right hand, I am going to order a stat arterial Doppler and stat CT angiogram of the right upper extremity. I am also going to consult vascular surgery. I discussed this with the warehouse consultant and the floor nurse taking care of the patient. Otherwise, we will continue with the same plan of care. Job#: [id number] HONORIO
--- NOTE | 2018-03-21 13:50 | NUR ---
Visit made by the Spiritual Care Department Pastoral Visitor, Pilar Major. Pt sleeping soundly. Pt's family at bedside. PV provided pastoral presence, hospitality, and supportive listening. Pastoral Visitor informed family of the scope of Documentation Analyst Services and availability. [facility] Spiritual Care Department O: [phone] Pager: [phone] ([phone] calling from)
[2018-03-21 13:51] LABS: BASOPHILS % 0.2 % (0.0-1.0); EOSINOPHILS % 0.1 % (0.0-6.0); HEMATOCRIT 40.5 % (34.2-44.1); HEMOGLOBIN 12.9 g/dL (12.0-16.0); LYMPHOCYTES # (AUTO) 1.1 (1.0-3.2); LYMPHOCYTES % 8.9 % (18.0-39.1); MEAN CORPUSCULAR HEMOGLOBIN 30.4 pg (28-32); MEAN CORPUSCULAR HGB CONC 31.9 g/dL (31-35); MEAN CORPUSCULAR VOLUME 95.3 fL (81-99); MONOCYTES # (AUTO) 0.9 (0.2-0.8); MONOCYTES % 6.6 % (4.4-11.3); NEUTROPHILS # (AUTO) 10.8 (2.1-6.9); NEUTROPHILS % 83.6 % (38.7-80.0); PLATELET COUNT 202 x10e3/uL (140-360); RED BLOOD COUNT 4.25 x10e6/uL (3.6-5.1)
[2018-03-21 14:23] LABS: ALBUMIN 3.9 g/dL (3.5-5.0); ALBUMIN/GLOBULIN RATIO 1.3 (0.8-2.0); ANION GAP 14.7 mmol/L (8-16); CALCIUM 9.3 mg/dL (8.4-10.2); CREATININE, SERUM 0.91 mg/dL (0.57-1.11); POTASSIUM 4.7 mmol/L (3.5-5.1)
--- NOTE | 2018-03-21 14:46 | NUR ---
PT'S BP AND HR STABILIZED AND PT SENT FOR CTA NECK AND HEAD WHICH RESULTED NEGATIVE FOR ADDITIONAL EVENTS. DOPPLER TO RT ARM NEGATIVE FOR BLOCKAGE. PT RESTING WITH DAUGHTER AT BEDSIDE. PT DENIES NEEDS AT THIS TIME.
[2018-03-21] MEDS ORDERED: IOPAMIDOL 370 MG/ML 200 ML INFUS..BTL INJ ONE (15:13)
[2018-03-21] MEDS ORDERED: SODIUM CHLORIDE 0.9% 50ML 50 ML ONE (15:13)
--- NOTE | 2018-03-21 16:36 | NUR ---
WENT TO MEET W THE DTR AT THE BEDSIDE FOR CHOICE LETTER FOR REHAB. PT WAS HAVING A RAPID RESPONSE DONE. SPOKE W DAVID ACUNA. SHE ASKED THAT WE SPEAK ON TOMORROW ABOUT REHAB. CM AGREED.
[2018-03-21] MEDS: RIVAROXABAN 10 MG TABLET PO SCH (17:19)
[2018-03-21] MEDS: FAMOTIDINE 20 MG TAB PO SCH (20:30)
[2018-03-21] MEDS: CEFTRIAXONE SOD 1 GM/NS 50 ML 50 ML IV SCH (23:44)
[2018-03-22] VITALS (9 sets, daily range): BP systolic 122–157; BP diastolic 58–70
[2018-03-22 05:23] LABS: BASOPHILS % 0.7 % (0.0-1.0); EOSINOPHILS # (AUTO) 0.1 (0.0-0.4); HEMATOCRIT 33.1 % (34.2-44.1); HEMOGLOBIN 10.8 g/dL (12.0-16.0); LYMPHOCYTES # (AUTO) 2.2 (1.0-3.2); LYMPHOCYTES % 36.3 % (18.0-39.1); MEAN CORPUSCULAR HEMOGLOBIN 30.5 pg (28-32); MEAN CORPUSCULAR HGB CONC 32.6 g/dL (31-35); MEAN CORPUSCULAR VOLUME 93.5 fL (81-99); MONOCYTES # (AUTO) 0.7 (0.2-0.8); MONOCYTES % 11.2 % (4.4-11.3); NEUTROPHILS # (AUTO) 3.1 (2.1-6.9); NEUTROPHILS % 50.5 % (38.7-80.0); PLATELET COUNT 183 x10e3/uL (140-360); RED BLOOD COUNT 3.54 x10e6/uL (3.6-5.1); RED CELL DISTRIBUTION WIDTH 12.8 % (11.7-14.4)
[2018-03-22 05:49] LABS: ANION GAP 11.9 mmol/L (8-16); BLOOD UREA NITROGEN 16 mg/dL (7-26); BUN/CREATININE RATIO 23 (6-25); CALCIUM 8.6 mg/dL (8.4-10.2); CARBON DIOXIDE 23 mmol/L (22-29); CHLORIDE 108 mmol/L (98-107); CREATININE, SERUM 0.69 mg/dL (0.57-1.11); EST GLOMERULAR FILTRATION RATE > 60 ML/MIN (60-); GLUCOSE 92 mg/dL (74-118); POTASSIUM 3.9 mmol/L (3.5-5.1); SODIUM 139 mmol/L (136-145)
--- NOTE | 2018-03-22 07:35 | NUR ---
patient resting in bed, Alert with no distress, call light in reach, keep monitoring
[2018-03-22] MEDS: OLMESARTAN 20 MG TAB PO SCH (08:55)
[2018-03-22] MEDS: PRAVASTATIN 20 MG TAB PO SCH (08:55)
[2018-03-22] MEDS: ASPIRIN 81 MG ENTERIC COATED PO SCH (08:55)
[2018-03-22] MEDS: METOPROLOL SUCCINATE 25 MG TAB XL PO SCH (08:55)
[2018-03-22] MEDS: DRONEDARONE 400 MG TAB PO SCH (08:55)
[2018-03-22] MEDS ORDERED: VERAPAMIL HCL 180 MG TBER PO SCH (09:00)
--- NOTE | 2018-03-22 10:44 | Progress Note ---
DATE: March 22, 2018 MEDICINE PROGRESS NOTE SUBJECTIVE: Patient is actually doing well with no complaints. Yesterday in the afternoon, she had a rapid response due to hypotension and bradycardia. Her ediphone operator put a temporary loop recorder yesterday. We are going to monitor her. There is some concern that she may have had a heart block. Will defer this to cardiology. Otherwise, today she is doing well. Her right upper extremity is not cold in sensation. Has no complaints of pain or any weakness. OBJECTIVE VITAL SIGNS: Temperature is 97.1, pulse 86, respiratory rate is 19, blood pressure 157/70, pulse ox is 96% on room air. GENERAL: Not in acute distress. Alert and oriented times 3. Cooperative on examination. HEENT: Head is normocephalic and atraumatic. Eyes: Pupils equal, round and reactive to light bilaterally. Extraocular movements intact bilaterally. NECK: Supple. Good range of motion. Throat with no evidence of any erythema or exudates in the posterior pharynx. Has poor dentition. PULMONARY: Clear to auscultation bilaterally. No wheezing. No rales. No rhonchi. No crackles appreciated. CARDIOVASCULAR: Positive S1 and S2. No murmurs, rubs or gallops appreciated. ABDOMEN: Soft, nondistended and nontender to palpation. Bowel sounds present. MUSCULOSKELETAL: Strength is 5/5 throughout. No evidence of any muscle deficit on examination. No weakness appreciated. NEUROLOGICAL: Cranial nerves II-XII are grossly intact. No evidence of any neurological deficits on exam. SKIN: Intact. Warm to touch. Good cap refill. PSYCHIATRIC: Normal affect and mood. EXTREMITIES: No edema. Good range of motion throughout. LAB FINDINGS: Show a white count of 6, hemoglobin 10.8, hematocrit 33, and platelets of 183,000. Coagulation: PT 13, INR 0.95 and PTT is 31. Chemistry: Sodium 139, potassium 3.9, chloride 108, bicarb 23, anion gap of 11, BUN 16, creatinine 0.69, glucose is 92. Calcium is 8.6. MICROBIOLOGY: Urine culture is consistent with Morganella. IMAGING STUDIES: CTA of the head and neck showed no intracranial or cervical high-grade stenosis or occlusion of vascular malformation. Otherwise, it was a negative CTA of the head and neck. Arterial Doppler of the right upper extremity was found to be negative. Pending final results. IMPRESSION 1. Acute cerebrovascular accident seen on MRI. 2. Urinary tract infection: On antibiotics. 3. Atrial fibrillation: Rate controlled. 4. Hyperlipidemia. 5. Hypertension. 6. Right hand cold sensation: Found to have negative arterial Doppler. PLAN: At this time, CTA of the head and neck was found to be negative. Neurology is following. She is on aspirin, as well as statin. Working on PT and OT. Working on inpatient rehab acceptance. She is on IV antibiotics for UTI. Her heart rate is well controlled, but yesterday she was very bradycardic in which a loop recorder has been placed by cardiology. She is on anticoagulation. Blood pressure is stable. We did decrease the Cardizem yesterday. In relation to her right upper hand and upper extremity, it seems to be back to normal now. It is very warm to touch. No complaints. I ordered a CTA of the right upper extremity, which is pending as of today. Arterial Doppler prelim results showed it to be negative. Job#: [id number] JESSICA
--- NOTE | 2018-03-22 14:53 | NUR ---
SPOKE W DR. CALL ABOUT PT TRANSITION OF CARE. STATES THE CT DID NOT CLEARLY SHOW A STROKE AND SHE DIDN'T THINK THE PT COULD TOLERATED ANOTHER MRI AT THIS TIME. STATES THE PT PROBABLY CANNOT TOLERATE 3 HRS OF THERAPY DAILY. STATES SNF WOULD PROBABLY BE THE BEST ROUTE. NOTIFIED EMILE RIVERA. SHE WILL F/U W THE PT.
--- NOTE | 2018-03-22 16:09 | NUR ---
SPOKE WITH PATIENT AND DAUGHTER ARMAND ABOUT CHOICE FOR SNF, GAVE OPTIONS IN AREA IN NETWORK. DAUGHTER ARMAND STATES HER BROTHER HAS JUST GONE THROUGH ALL OF THIS AND WILL LET HER KNOW TONIGHT WHAT THE CHOICE IS AND SHE WILL NOTIFY MYSELF OR THE CM ABOUT DECISION.
[2018-03-22] MEDS: RIVAROXABAN 10 MG TABLET PO SCH (16:59)
--- NOTE | 2018-03-22 18:05 | NUR ---
patient up in bed, tolerated with dinner, not in any distress, daughter at bed side,
--- NOTE | 2018-03-22 20:38 | NUR ---
PATIENT IS TO BE TRANSFER TO RM#297, REPORT CALL AND GIVEN TO THE RECEIVING NURSE.
[2018-03-22] MEDS: FAMOTIDINE 20 MG TAB PO SCH (21:00)
--- NOTE | 2018-03-22 21:25 | NUR ---
PATIENT IS TRANSFERRED TO #297 PER BED, ALL PERSONAL ITEMS TAKEN WITH THE PATIENT.
--- NOTE | 2018-03-22 21:30 | NUR ---
patient recieved to room 297 via bed from obs room 175. vss. no c/o pain noted. patient oob to bsc with assistance. patient voids without difficulty. right sided weakness noted. right upper greater than lower with right facial droop. daughter noted at the patients bedside. patient/daughter instructed to call for assistance when needed.
[2018-03-22] MEDS ORDERED: SODIUM CHLORIDE 0.9% 250ML 250 ML ONE (23:54)
[2018-03-23] VITALS (7 sets, daily range): BP systolic 113–160; BP diastolic 48–70
--- NOTE | 2018-03-23 06:03 | Diagnostic Imaging Report ---
EXAM: ABDOMEN-1VIEW (KUB) DATE: 03/23/2018 6:00 AM INDICATION: Small bowel obstruction COMPARISON: None FINDINGS: Enteric contrast within the ascending and transverse colon. Otherwise, paucity of bowel gas limits evaluation. IMPRESSION: As above. Signed by: Dr. Xavier Arshad MD on 03/23/2018 5:59 AM
[2018-03-23] MEDS: OLMESARTAN 20 MG TAB PO SCH (09:12)
[2018-03-23] MEDS: DRONEDARONE 400 MG TAB PO SCH (09:12)
[2018-03-23] MEDS: ASPIRIN 81 MG ENTERIC COATED PO SCH (09:12)
[2018-03-23] MEDS: PRAVASTATIN 20 MG TAB PO SCH (09:12)
[2018-03-23] MEDS: METOPROLOL SUCCINATE 25 MG TAB XL PO SCH (09:13)
--- NOTE | 2018-03-23 12:39 | NUR ---
PT CHOOSE [facility]. FAXING CLINICALS TO [phone].
--- NOTE | 2018-03-23 14:10 | Progress Note ---
DATE: March 23, 2018 MEDICINE PROGRESS NOTE SUBJECTIVE: Patient is doing well today with no complaints. Her right upper extremity is very warm to touch. No complaints. No pain. No duskiness. I discussed with them about the CT of the right upper extremity. They have agreed to discontinue that study. Her arm is back to normal. There is no issues at this time. OBJECTIVE VITAL SIGNS: Temperature is 96, pulse 79, respiratory rate is 18, blood pressure is 160/82. She is satting on room air. GENERAL: Not in acute distress. Alert and oriented times 3. Cooperative on examination. HEENT: Head is normocephalic and atraumatic. Eyes: Pupils equal, round and reactive to light bilaterally. Extraocular movements intact bilaterally. NECK: Supple. Good range of motion. Throat with no evidence of any erythema or exudates in the posterior pharynx. Has poor dentition. PULMONARY: Clear to auscultation bilaterally. No wheezing. No rales. No rhonchi. No crackles appreciated. CARDIOVASCULAR: Positive S1 and S2. No murmurs, rubs or gallops appreciated. ABDOMEN: Soft, nondistended and nontender to palpation. Bowel sounds present. MUSCULOSKELETAL: Strength is 5/5 throughout. No evidence of any muscle deficit on examination. No weakness appreciated. NEUROLOGICAL: Cranial nerves II-XII are grossly intact. Facial droop on examination. SKIN: Intact. Warm to touch. Good cap refill. PSYCHIATRIC: Normal affect and mood. EXTREMITIES: No edema. Good range of motion throughout. LAB FINDINGS: Show white count is 6, hemoglobin 10.8, hematocrit is 33, and platelets are 193,000. Urine culture is consistent with Morganella. IMAGING STUDIES: Abdominal x-ray essentially negative. IMPRESSION 1. Acute cerebrovascular accident seen on MRI. 2. Urinary tract infection: On antibiotics. 3. Atrial fibrillation, rate controlled now: being monitored. 4. Hyperlipidemia. 5. Hypertension. 6. Right hand cold sensation, resolved. 7. Negative arterial Doppler. PLAN: At this time, she is on aspirin and statin. No more neurological issues at this time. On antibiotics for UTI. Currently, rate is controlled. On Xarelto. In relation to her right hand cold sensation, it all resolved. Her hand is warm to touch. There is no pain. There is no duskiness. We discussed this with the daughter and the patient at bedside. They have agreed to go ahead and discontinue the CTA of the right upper extremity. At this time, will go ahead and just monitor closely. She was told by her director environmental that they wanted to monitor her one more day in relation to the loop recorder. From my perspective, once she has been cleared, she is cleared to be discharged to [facility] facility. Job#: [id number] RI
[2018-03-23] MEDS ORDERED: MAGNESIUM HYDROXIDE 30 ML UDC PO ONE (14:15)
[2018-03-23] MEDS: RIVAROXABAN 10 MG TABLET PO SCH (16:59)
--- NOTE | 2018-03-23 19:00 | NUR ---
patient recieved awake, alert, lying quietly in bed. vss. no c/o pain noted. pm assessment complete. daughter noted at the bedside. patient/daughter instructed to call for assistance when needed.
--- NOTE | 2018-03-23 19:37 | NUR ---
patient ooob to bsc. lrg soft bm noted. skin care provided at this time.
[2018-03-23] MEDS: FAMOTIDINE 20 MG TAB PO SCH (20:09)
[2018-03-23] MEDS: CEFTRIAXONE SOD 1 GM/NS 50 ML 50 ML IV SCH ×2 (23:00)
[2018-03-24] VITALS: BP 138/63
[2018-03-24 04:00] VITALS: BP 189/74
--- NOTE | 2018-03-24 07:06 | NUR ---
RECEIVED PATIENT RESTING IN BED. NO ACUTE DISTRESS NOTED. FAMILY AT BEDSIDE. CALL LIGHT WITHIN REACH. BED IN THE LOWEST POSITION.
[2018-03-24 07:25] VITALS: BP 196/81
[2018-03-24 07:26] LABS: BASOPHILS % 0.6 % (0.0-1.0); EOSINOPHILS # (AUTO) 0.1 (0.0-0.4); EOSINOPHILS % 1.4 % (0.0-6.0); HEMATOCRIT 38.1 % (34.2-44.1); HEMOGLOBIN 12.5 g/dL (12.0-16.0); LYMPHOCYTES % 29.7 % (18.0-39.1); MEAN CORPUSCULAR HEMOGLOBIN 30.2 pg (28-32); MEAN CORPUSCULAR HGB CONC 32.8 g/dL (31-35); MONOCYTES # (AUTO) 0.8 (0.2-0.8); MONOCYTES % 11.4 % (4.4-11.3); NEUTROPHILS # (AUTO) 3.7 (2.1-6.9); NEUTROPHILS % 56.7 % (38.7-80.0); PLATELET COUNT 207 x10e3/uL (140-360); RED BLOOD COUNT 4.14 x10e6/uL (3.6-5.1); RED CELL DISTRIBUTION WIDTH 12.8 % (11.7-14.4)
[2018-03-24 07:45] LABS: ANION GAP 10.1 mmol/L (8-16); BLOOD UREA NITROGEN 11 mg/dL (7-26); BUN/CREATININE RATIO 17 (6-25); CALCIUM 9.2 mg/dL (8.4-10.2); CARBON DIOXIDE 25 mmol/L (22-29); CHLORIDE 106 mmol/L (98-107); CREATININE, SERUM 0.63 mg/dL (0.57-1.11); EST GLOMERULAR FILTRATION RATE > 60 ML/MIN (60-); GLUCOSE 92 mg/dL (74-118); POTASSIUM 4.1 mmol/L (3.5-5.1); SODIUM 137 mmol/L (136-145)
[2018-03-24 08:05] VITALS: BP 196/81
[2018-03-24] MEDS: OLMESARTAN 20 MG TAB PO SCH (09:28)
[2018-03-24] MEDS: ASPIRIN 81 MG ENTERIC COATED PO SCH (09:28)
[2018-03-24] MEDS: PRAVASTATIN 20 MG TAB PO SCH (09:29)
[2018-03-24] MEDS: METOPROLOL SUCCINATE 25 MG TAB XL PO SCH (09:29)
[2018-03-24] MEDS: DRONEDARONE 400 MG TAB PO SCH (09:29)
[2018-03-24] MEDS ORDERED: DOCUSATE SODIUM 100 MG CAP PO SCH (10:30)
[2018-03-24 11:11] VITALS: BP 138/55
--- NOTE | 2018-03-24 11:27 | NUR ---
REPORT CALLED TO FEDE DING AT [facility].
--- NOTE | 2018-03-24 12:41 | NUR ---
RECEIVED DC ORDER FROM . PATIENT IS GOING TO BE TRANSFERRED TO [facility]. SHE IS IN STABLE CONDITION, VS WNL. IV TO RIGHT WRIST 22G IN PLACE AND FLUSHED REQUESTED BY FEDE DING AT [facility]. PATIENT TAKEN VIA STRETCHER BY EMS. ALL PERSONAL BELONGINGS TAKEN BY PATIENT'S DAUGHTER INCLUDING DISCHARGE FOLDER.
--- NOTE | 2018-03-24 17:25 | Discharge Summary ---
FINAL DISCHARGE DIAGNOSES 1. Acute cerebrovascular accident. 2. Urinary tract infection. 3. Atrial fibrillation, rate controlled. 4. Hyperlipidemia. 5. Hypertension. 6. Generalized weakness. CONSULTANTS: Neurology and cardiology. VITAL SIGNS: Temperature is 97.3, pulse 62, respiratory rate is 18, blood pressure was 138/63, pulse ox 97% on room air. LAB FINDINGS: Show white count 6.5, hemoglobin 12.5, hematocrit is 38, platelets of 207. Coagulation: PT 13.6, INR 0.95, PTT 31. Chemistries: sodium 137, potassium 4.1, chloride 106, bicarb 25, anion gap is 10, BUN is 11, creatinine is 0.63, glucose is 92, calcium is 9.2. Urinalysis concerning for UTI. Urine cultures positive for Morganella morganii. IMAGING STUDIES: Chest x-ray that was found to be negative. CT brain: no acute abnormalities seen. MRI of the brain showed acute to subacute left paramedian roberto ischemic infarct without hemorrhagic conversion or mass effect. Carotid ultrasound was found to be negative. CTA of the head and neck showed no intracranial or cervical high-grade stenosis of concern or vascular malformation. Abdominal x-ray was found to be negative. Modified barium swallow performed, found to be able to eat a regular diet. HOSPITAL COURSE: This is an 88-year-old female who came in to the ED with underlying left facial droop and slurred speech. CT brain negative. MRI of the brain found to have subacute stroke. Neurology was consulted. Patient was started on aspirin and statin. The rest of the imaging studies with results above. Patient did not take any of her Xarelto at home history of atrial fibrillation due to cost, likely relating to the etiology of the acute CVA. Cardiology was consulted. Holter was placed for 2 days while in the hospital but with no evidence of any kind of arrhythmias and was cleared by cardiology for discharge. Patient is to continue with rate-control medications and continue with Xarelto. On discharge, patient was cleared by cardiology and neurology. She will be discharged on aspirin and statin as well as the Xarelto rate control medications, as well as her home medications. On discharge, vital signs stable, labs reviewed and stable. Patient seen and evaluated, examined thoroughly on the day of discharge with no other complaints. Patient verbalized understanding and agrees with plan of care. Will follow up accordingly as an outpatient with the primary care physician in 1 week and neurologist in 2 weeks' time and follow up with electronic service technician in 2 weeks' time. MEDICATIONS: See med reconciliation. DISPOSITION: To home. CONDITION: Stable. DIET: Heart healthy. In the event of any worsening symptoms, patient advised to come back to the ED for further evaluation. Discharge summary took greater than 35 minutes. RUBY CHRISTENSEN MD Job#: [id number] TA
--- NOTE | 2018-03-27 17:45 | Diagnostic Imaging Report ---
PROCEDURE:X-RAY MODIFIED BARIUM SWALLOW COMPARISON:None. INDICATIONS:Status post stroke with suspected aspiration. DISCUSSION:Fluoroscopic examination was performed in conjunction with speech pathology, during swallowing of a variety of thin and thick liquid consistencies. CONCLUSION:Penetration is demonstrated without evidence of aspiration on provided images. Mild vallecular residue is noted. Please see the report from speech pathology for complete details. Dictated by: TREVOR HOLLEY M.D. on 03/27/2018 at 17:57 Electronically approved by: TREVOR HOLLEY M.D. on 03/27/2018 at 17:57
== END 2018-03-24 12:42 | DRG 65 ==
LOC: ER 21:47 → ERHOLD 03-19 00:52 → IMCU 03-19 01:51 → OBSVTOIN 03-21 09:15 → MED/SURG3 03-22 20:37 → IMCU 03-22 21:28 → MED/SURG3 03-22 21:37
PROVIDERS: ADMIT Internal Medicine; ATTEND Internal Medicine
DX: I63.89 Other cerebral infarction (principal); N39.0 Urinary tract infection, site not specified; Z79.01 Long term (current) use of anticoagulants; Z91.120 Patient's intentional underdosing of medication regimen due to financial hardship; I25.10 Atherosclerotic heart disease of native coronary artery without angina pectoris; Z95.1 Presence of aortocoronary bypass graft; J44.9 Chronic obstructive pulmonary disease, unspecified; E78.5 Hyperlipidemia, unspecified; Z95.2 Presence of prosthetic heart valve; I48.0 Paroxysmal atrial fibrillation; R29.810 Facial weakness; R47.81 Slurred speech; I10 Essential (primary) hypertension
CPT/HCPCS: 36415; 70450; 70496; 70498; 70551; 71045; 74018; 74230; 80048; 80053; 80061; 81001; 82550; 82553; 82948; 83036; 84132; 84484; 85025; 85610; 85730; 87086; 87186; 92523; 93005; 93225; 93306; 93880; 93971; 97139; 99284; G0378; J0696; J1940; J2405; J7030; J7050; Q9967

== ENCOUNTER → 2018-06-19 | Outpatient (CLI) | payer MEDICARE ==
[~2018-06-19] MED LIST: ASPIR 8181 MG; FAMOTIDINE20 MG PO; LOSARTAN POTASS25 MG PO; METOPROLOL SUCC25 MG PO; MULTAQ400 MG PO; PRAVASTATIN SOD40 MG PO; RANITIDINE HCL300 MG PO; VERAPAMIL ER120 MG PO; XARELTO10 MG
== END ==
LOC: RAD 13:05
PROVIDERS: ATTEND Internal Medicine Cardiovascular Disease
DX: I35.0 Nonrheumatic aortic (valve) stenosis (principal); Z95.2 Presence of prosthetic heart valve
CPT/HCPCS: 93306